=== PATIENT | female | born 1955 | race Caucasian/White ===

== ENCOUNTER 2024-07-11 10:11 | Outpatient (REF) | payer OTHER, SELFPAY ==
[2024-07-11 11:34] LABS: Estimated Average Glucose 128 mg/dL; Hemoglobin A1C 145.4465 umol/L; Hemoglobin A1c % 6.1 % (<6.0); Total Hemoglobin (HGBA1C) 3375.5392 umol/L
[2024-07-11 11:57] LABS: Anion Gap 12 (12-20); Blood Urea Nitrogen 13 mg/dL (9-16); Calcium 9.3 mg/dL (8.4-10.2); Carbon Dioxide 22 mmol/L (22-29); Chloride 109 mmol/L (96-108); Estimated Glomerular Filt Rate > 60; Glucose Random 96 mg/dL (60-115); Potassium 3.5 mmol/L (3.3-5.1); Sodium 139 mmol/L (135-145)
[2024-07-11 12:09] LABS: Erythrocyte Sedimentation Rate 14 MM/HR (0-20)
[2024-07-11 12:27] LABS: Vitamin B12 697 pg/mL (200-900)
[2024-07-12 20:09] LABS: Lyme Abs Screen <0.90 index
[2024-07-14 13:03] LABS: IgA 140 mg/dL (70-320); IgG 977 mg/dL (600-1540); IgM 160 mg/dL (50-300)
== END 2024-07-11 10:12 | disposition home or self-care (01) ==
LOC: HO.LAB 10:11
PROVIDERS: PCP Family Medicine; Visit Provider Psychiatry & Neurology Neurology
DX: G62.9 Polyneuropathy, unspecified (principal); Z13.1 Encounter for screening for diabetes mellitus
CPT/HCPCS: 36415; 80048; 82607; 82784; 83036; 85652; 86334; 86617; 86618

== ENCOUNTER 2024-07-13 11:25 | Outpatient (REF) | payer OTHER, SELFPAY ==
[2024-07-20 04:03] LABS: Arsenic, 24H Urine 13 mcg/L (<=80); Cadmium, 24H Urine 0.9 mcg/L (<=5.0); Lead, 24H Urine <10 mcg/L (<80); Mercury, 24H Urine <4 mcg/L (<=20)
== END 2024-07-13 11:26 | disposition home or self-care (01) ==
LOC: HO.LNP 11:25
PROVIDERS: Visit Provider Psychiatry & Neurology Neurology
DX: G62.9 Polyneuropathy, unspecified (principal)
CPT/HCPCS: 82175; 82300; 83655; 83825

== ENCOUNTER 2025-07-01 10:42 | Outpatient (AMB) | payer OTHER, SELFPAY ==
--- NOTE | 2025-07-01 10:57 | A.OFFVIS_ITS ---
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: #[id number] Allergies No Known Allergies Allergy (Verified 07/01/25 11:02) Medication List - Last Reconciled 07/01/25 by Shannon Boyle CNP acetaminophen ER mg PO alendronate 70 mg PO QWEEK atorvastatin 40 mg PO DAILY bisacodyl mg PO celecoxib 100 mg PO BID cetirizine 10 mg PO DAILY cholecalciferol (vitamin D3) 50 mcg PO DAILY docusate sodium 100 mg PO BID levothyroxine 125 mcg PO DAILY linaclotide (Linzess) 145 mcg PO DAILY pantoprazole 40 mg PO DAILY pregabalin 100 mg PO BID HPI Comments Details: 70-year-old woman with hypothyroidism, hyperlipidemia, KIP on CPAP, previous diagnosis of fibromyalgia, and peripheral neuropathy. Symptoms of pain, numbness, tingling, burning, and some swelling in the feet started around mid- 2023. She occasionally had similar sensation in hands without swelling. Nerve conduction study at [facility] in 02/2024 was consistent with axonal sensorimotor peripheral neuropathy. No relief with amitriptyline 75mg, duloxetine 60mg, or gabapentin 900mg/day. She has trouble initiating and maintaining sleep. No history of diabetes, toxic exposure, or family history of neuropathy. She was doing okay. Pregabalin was helping with pain. Burning sensation and sensitivity in legs was much better with medication. Numbness and tingling to feet was unchanged. She was walking with walker and in PT 3x/week, no falls. Sleep was okay. [facility] Medical History (Updated 07/01/25 @ 11:00 by Shannon Boyle CNP) Fibromyalgia Hypothyroidism Hyperlipidemia KIP on CPAP Review of Systems Const Denies chills, Denies daytime sleepiness, Reports difficulty sleeping, Denies fatigue, Denies fever(s), Denies frequent falls, Denies headache(s), Denies increased appetite, Denies poor appetite, Denies snoring, Denies weakness, Denies weight gain and Denies weight loss Eyes Denies loss of vision ENT Denies vertigo, Denies dizziness, Denies headache(s) and Reports neck pain Card Denies chest pain at rest, Denies chest pain with activity, Denies syncope, Reports leg edema, Denies palpitations, Reports dyspnea and Denies dyspnea on exertion Resp Denies cough, Reports dyspnea, Denies dyspnea on exertion and Denies snoring GI Denies abdominal pain, Denies constipation, Denies heartburn, Denies diarrhea and Denies nausea Denies urinary frequency, Denies urinary incontinence and Denies urinary urgency Musc Reports abnormal gait, Reports back pain, Denies myalgias, Denies arthralgias, Reports neck pain, Reports numbness and Reports tingling Neuro Reports abnormal gait, Denies vertigo, Denies dizziness, Denies syncope, Denies frequent falls, Denies headache(s), Denies lack of coordination, Denies loss of vision, Denies memory loss, Reports numbness, Denies Other visual disturbances, Denies restless legs, Denies seizure-like activity, Reports tingling, Denies paresthesias, Denies tremor(s) and Denies weakness Psych Denies anxiety, Denies depression, Denies auditory hallucinations, Denies memory loss and Denies visual hallucinations Endo Denies fatigue and Denies palpitations Physical Exam Const Other: General Appearance:? normal, in no acute distress. Heart:? S1, S2 normal, no murmurs. Lungs:? clear anteriorly and posteriorly. Musculoskeletal:? normal. Extremities:? mild BLE edema. Psych:? alert, oriented, cognitive function intact, cooperative with exam. Neuro Other: Abnormal Neurological Findings:?Absent reflexes at knees and ankles. Decreased pinprick in soles up to mid tarsal level with preserved sensation on dorsal surfaces of toes. 5-/5 grasp bilaterally, 5-/5 finger spread bilaterally with submaximal effort on motor testing.?Walking with walker. Mental Status: alert and oriented X 3. Normal attention, orientation, memory, and affect. Cranial Nerves: Pupils are equal, round, and reactive to light. External ocular muscles are intact. Visual bedolla are full, no ptosis. Face is symmetrical, no facial weakness or droop. Facial sensations are normal. Tongue protrudes in midline. Palate elevates symmetrically. Shoulder shrugging is normal Motor Examination: As above. Sensory Exam: As above. Coordination: No ataxia. No titubation. Gait Exam: With walker. Cerebellar Signs: [id number] is okay. Extrapyramidal System: No tremor, rigidity with normal facial expressions. No bradykinesia. No bradyphrenia. Normal arm swing and posture. No propulsion or retropulsion. Speech: Normal. Results Reviewed Results Reviewed: February 2024: Nerve conduction study performed at [facility] by Dr. Mosley is consistent with moderate axonal sensorimotor peripheral neuropathy. 06/2024 labs A1c 6.1, otherwise ok Assessment & Plan Assessment & Plan (1) Peripheral neuropathy: Code(s): G62.9 - Polyneuropathy, unspecified Category: Medical Qualifiers: Peripheral neuropathy type: polyneuropathy, unspecified Qualified Code(s): G62.9 - Polyneuropathy, unspecified Plan: Continue pregabalin 100mg 1 capsule twice a day. Follow up in 6 months or sooner as needed. Plan Meds tried: amitriptyline, duloxetine, gabapentin Medications: New pregabalin 100 mg PO BID 60 caps 5RF 30 days Coding Level of Care Code Est Pt Level 4 (39731) Diagnoses Peripheral polyneuropathy G62.9 Peripheral neuropathy type: polyneuropathy, unspecified
== END 2025-07-01 11:14 | disposition home or self-care (01) ==
LOC: HO.HSM 10:42
PROVIDERS: PCP Family Medicine; Referring Provider Family Medicine; Visit Provider Registered Nurse
DX: G62.9 Polyneuropathy, unspecified (principal)
CPT/HCPCS: 99214